=== PATIENT | female | born 1990 | race African-American/Black ===

== ENCOUNTER 2017-10-07 23:55 | Observation (INO) | payer OTHER ==
[2017-10-08] MEDS ORDERED: IV RINGERS,LACTATED 1000ML 1,000 ML IV
[2017-10-08 00:17] LABS: BILIRUBIN,URINE NEGATIVE (NEG); CLARITY,URINE CLEAR; COLOR,URINE YELLOW; GLUCOSE,URINE NEGATIVE (NEG); NITRITE,URINE POSITIVE (NEG); PROTEIN,URINE NEGATIVE (NEG-TRACE); UROBILINOGEN,URINE 0.2 mg/dL (0.2 mg/dL)
[2017-10-08 00:24] LABS: AMPHETAMINE/METHAMPHETAMINE NEG (NEG); BARBITURATES NEG (NEG); BENZODIAZEPINES NEG (NEG); CANNABINOIDS POS (NEG); COCAINE NEG (NEG); ETHANOL, URINE NEG (NEG); METHADONE NEG (NEG); OPIATES NEG (NEG); PHENCYCLIDINE NEG (NEG)
[2017-10-08 00:32] LABS: AMORPHOUS SEDIMENT,UR PRESENT /HPF; BACTERIA,URINE MODERATE /HPF (0-FEW); GRANULAR CASTS,URINE OCCASIONAL /HPF; SQUAMOUS EPITHELIAL CELL,UR FEW /LPF; WBC,URINE 20-40 /HPF (0-4)
[2017-10-08] MEDS: ACETAMINOPHEN 325 MG TABLET. PO (00:49)
== END 2017-10-08 00:49 | disposition home or self-care (01) ==
LOC: 3 SO LND 23:55
DX: O26.892 Other specified pregnancy related conditions, second trimester (principal); M54.5 Low back pain; R10.30 Lower abdominal pain, unspecified; R35.0 Frequency of micturition; Z3A.21 21 weeks gestation of pregnancy
CPT/HCPCS: 80307; 81001; 87086; G0379

== ENCOUNTER → 2017-11-25 | Outpatient (CLI) | payer OTHER ==
--- NOTE | 2017-11-25 16:30 | KCIC ---
EXAM: Obstetrics sonogram. HISTORY: Small for dates. TECHNIQUE: Sonographic imaging of the gravid uterus was performed. COMPARISON: None. FINDINGS: There is a single intrauterine fetus in cephalic presentation with a heart rate of 135 bpm. The biparietal diameter is 7.16 cm, corresponding with 28 weeks and 5 days. The head circumference is 26.39 cm, corresponding with 28 weeks and 5 days. The abdominal circumference is 24.38 cm, corresponding with 28 weeks and 4 days. The femoral length is 5.44 cm, corresponding with 28 weeks and 5 days. The estimated gestational age patient combined ultrasound measurements is 28 weeks and 5 days. The estimated weight is 1269 g. The estimated due date is 02/12/2018. There is a three-vessel umbilical cord with normal insertion. body motion is seen during the exam. There is a four-chamber heart. The stomach, kidneys, bladder, spine, brain, facial profile and extremities are unremarkable. The cervix is closed and measures 4.1 cm in length. There is an anterior placenta without evidence of placenta previa. The maternal adnexal regions are unremarkable. IMPRESSION: Single intrauterine fetus with an estimated gestational age based on ultrasound measurements of 28 weeks and 5 days and heart rate of 135 bpm. The estimated weight is at the 49th percentile for a gestational age based on the LMP of 28 weeks and 4 days. Electronically signed by: Vicky Schmitt MD (11/25/2017 4:27 PM) [facility]
== END | disposition home or self-care (01) ==
LOC: KCIC US 15:22
PROVIDERS: ATTEND Family Medicine
DX: O36.5920 Maternal care for other known or suspected poor fetal growth, second trimester, not applicable or unspecified (principal); Z3A.28 28 weeks gestation of pregnancy
CPT/HCPCS: 76805; 76817